=== PATIENT | male | born 1995 | race Caucasian/White ===

== ENCOUNTER 2024-10-11 09:07 | Emergency (ER) | payer OTHER, SELFPAY ==
--- NOTE | ~2024-10-11 | XR_ITS ---
XR ankle RT min 3V 10/11/2024 10:11 INDICATION: Right ankle pain PROCEDURE: 4 views right ankle COMPARISON: No prior studies for comparison. FINDINGS: Fracture, dislocation or subluxation is not identified. The soft tissues appear within normal limits. No foreign bodies are identified. IMPRESSION: 1: NO ACUTE BONE OR JOINT ABNORMALITY IDENTIFIED. Reviewed, dictated and finalized at location O.
[2024-10-11 09:32] VITALS: BP 146/89; PULSE 92; RESP 16; TEMP 37.1; O2SAT 100
--- NOTE | 2024-10-11 09:45 | ED.GENADULT ---
HPI - General Adult General Chief complaint: Extremity Injury, Lower Stated complaint: R ANKLE PAIN/SWELLING Source: patient Mode of arrival: ambulatory Limitations: no limitations History of Present Illness HPI narrative: Pt presents for evaluation of right ankle pain and swelling. He first noticed his symptoms two days ago in the middle of the day. He denies any recent precipitating injury. 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 He developed a sharp throbbing sensation in the joint. He rates his symptoms as 9/10 in severity. He took some tylenol, which eased his symptoms with symptom recurrence thereafter. Denies any associated erythema. No history of gout. He has a history of partial Achilles tendon tear on that side and when he runs he gets pain and swelling in that ankle. He also has a history of intermittent swelling and pain in right elbow follow a surgery in the past. Related Data Home Medications ?Medication ?Instructions ?Recorded ?Confirmed ?Last Taken ?Type lisinopril 10 mg tablet mg 10/11/24 Unknown History Allergies Allergy/AdvReac Type Severity Reaction Status Date / Time shellfish derived Allergy Unknown THROAT Verified 10/11/24 09:32 SWELLING Review of Systems Review of Systems: CONSTITUTIONAL: Denies fever, chills, or sweats. EYES: Denies visual changes, redness, or discharge. ENT: Denies rhinorrhea, congestion, sore throat, or otalgia. CARDIOVASCULAR: Denies chest pain, palpitations, or edema. RESPIRATORY: Denies cough or dyspnea. GASTROINTESTINAL: Denies abdominal pain, nausea, vomiting, or diarrhea. GENITOURINARY: Denies dysuria or hematuria. SKIN: Denies rash or itching. MUSCULOSKELETAL: Reports right ankle pain and swelling NEUROLOGIC: Denies headache, numbness, dizziness, or weakness. PSYCHIATRIC: Denies anxiety or depression. FORMERLY [facility], [facility] Past Medical History Medical History (Updated 10/11/24 @ 10:44 by Rivera Yoo, KANDY, SHERICE) Hypertension Surgical History Surgical History No pertinent past surgical history Family History Family History Mother Family history non-contributory Social History Social History Substance use: never Living arrangements: with family Additional occupation/education comments: uniform patrol police officer Gender identity (if verbalized by the patient): Male Spiritual care concerns: No Exam Narrative: GENERAL: Well-appearing, well-nourished, and in no acute distress. HEAD: Normocephalic, atraumatic. EYES: PERRLA and EOMI. ENT: Nares clear, no rhinorrhea or epistaxis. Mucous membranes moist. Oropharynx without tonsillar hypertrophy exudate or other lesions. Bilateral TMs pearly butcher nonbulging NECK: Supple. No adenopathy or masses. No carotid bruits or JVD CHEST: Clear to auscultation. No respiratory distress. No wheezes rales or rhonchi HEART: Regular rate and rhythm. No murmur heard. Normal peripheral pulses. ABDOMEN: Soft, nontender, nondistended, normal active bowel sounds. EXTREMITIES: Decreased dorsi and plantarflexion of the right foot. There is trace nonpitting edema to right ankle. There is tenderness to the medial aspect of the right ankle. SKIN: Warm, dry, no rash. NEURO: No focal deficits. Alert and oriented x3. PSYCH: Normal mood and affect. Course Course Emergency Course: This is a 29-year-old male who presented for evaluation of right ankle pain. There is no redness or warmth to suggest gout or septic joint. He was given Toradol with improvement in his symptoms or after. X-ray negative for fracture. Recommended he follow-up with orthopedics. Sounds like this is an intermittent problem and another joint which is responded favorably to Medrol Dosepak. Will discharge home with methylprednisolone today. He was also given injection of Solu-Medrol. Recommend RICE therapy. Go to the ER for worsening symptoms. Pt in agreement with plan of care. Level of Care: Express Care Visit Vital Signs Vital signs: Vital Signs Temperature 37.1 C 10/11/24 09:32 Pulse Rate 92 10/11/24 09:32 Respiratory Rate 16 10/11/24 09:32 Blood Pressure 146/89 H 10/11/24 09:32 Pulse Oximetry 100 10/11/24 09:32 Temperature 37.1 C 10/11/24 09:32 Pulse Rate 92 10/11/24 09:32 Respiratory Rate 16 10/11/24 09:32 Blood Pressure 146/89 H 10/11/24 09:32 Pulse Oximetry 100 10/11/24 09:32 Medical Decision Making Vital Signs Vital Signs: Vital Signs Temperature 37.1 C 10/11/24 09:32 Pulse Rate 92 10/11/24 09:32 Respiratory Rate 16 10/11/24 09:32 Blood Pressure 146/89 H 10/11/24 09:32 Pulse Oximetry 100 10/11/24 09:32 Temperature 37.1 C 10/11/24 09:32 Pulse Rate 92 10/11/24 09:32 Respiratory Rate 16 10/11/24 09:32 Blood Pressure 146/89 H 10/11/24 09:32 Pulse Oximetry 100 10/11/24 09:32 Imaging Data Radiologist's impression: XR ankle RT min 3V 10/11/2024 10:11 INDICATION: Right ankle pain PROCEDURE: 4 views right ankle COMPARISON: No prior studies for comparison. FINDINGS: Fracture, dislocation or subluxation is not identified. The soft tissues appear within normal limits. No foreign bodies are identified. IMPRESSION: 1: NO ACUTE BONE OR JOINT ABNORMALITY IDENTIFIED. Discharge Plan Discharge Clinical Impression: Arthralgia of ankle, right Patient Disposition: Home Condition: Stable Instructions: Antibiotic Form, Arthralgia (ED), Swollen Joint (ED) Patient Language: Wolof Prescriptions: New methylprednisolone [Medrol (Grant)] 4 mg tablets,dose pack See Rx Instructions .ROUTE .COMPLEX Qty: 21 0RF Rx Instructions: for 6 days No Action lisinopril 10 mg tablet Follow-up/Referrals: Alexis Jones MD [Physician, Orthopedics] Stand Alone Forms: Work/School Release IP Time of Disposition: 10:45
[2024-10-11] MEDS: KETOROLAC (*BKC) 60 MG/2 ML VIAL IM (09:50)
--- NOTE | 2024-10-11 10:11 | PC.NURSE ---
1011 Returned from xray, assisted to exam table with right leg elevated on pillow.
== END 2024-10-11 11:15 | disposition home or self-care (01) ==
PROVIDERS: Emergency Provider Nurse Practitioner
DX: M25.571 Pain in right ankle and joints of right foot (principal); I10 Essential (primary) hypertension
CPT/HCPCS: 73610; 96372; 99214; G0463; J1885; J2919